=== PATIENT | female | born 1950 | race African-American/Black ===

== ENCOUNTER 2018-08-29 11:07 | Emergency (ER) | payer OTHER ==
[~2018-08-29] VITALS: Ht 165.1 cm; Wt 68.0 kg
[2018-08-29] MEDS ORDERED: LIPITOR20 MG (12:34)
[2018-08-29] MEDS ORDERED: HYDROCORTISONE59 ML (12:35)
[2018-08-29] MEDS ORDERED: TENORMIN25 MG (12:35)
[2018-08-29] MEDS ORDERED: CHILDREN'S ASPI81 MG (12:35)
== END 2018-08-29 22:43 | disposition home or self-care (01) ==
LOC: ER 11:07
DX: K60.0 Acute anal fissure (principal)